=== PATIENT | female | born 1960 | race Caucasian/White ===

== ENCOUNTER 2016-04-02 04:54 | Emergency (ER) | payer OTHER ==
[~2016-04-02] VITALS: Ht 170.2 cm; Wt 74.1 kg
[~2016-04-02 04:54] MED LIST: CITA20TA4 PO
[2016-04-02 05:05] VITALS: BP 114/65; PULSE 72; RESP 16; TEMP 99.1; O2SAT 99
[2016-04-02 05:28] VITALS: TEMP 98.5
[2016-04-02] MEDS ORDERED: SODIUM CHLORIDE 0.9% FLUSH 5 ML FLUSH IVF PRN (05:30)
[2016-04-02] MEDS ORDERED: SODIUM CHLOR 0.9% 1000 ML INJ 1,000 ML IV ONE ×2 (05:30→06:45)
[2016-04-02] MEDS ORDERED: ONDANSETRON HCL 4 MG/2 ML VIAL IV PUSH ONE ×2 (05:30→06:45)
[2016-04-02 05:33] VITALS: RESP 18; O2SAT 99
--- NOTE | 2016-04-02 05:49 | PD ---
HPI Chief Complaint: Cold / Flu Symptoms Time Seen by Provider: 05:30 Travel History International Travel<30 days: No Contact w/Intl Traveler<30days: No Traveled to known affect area: No History of Present Illness HPI 56-year-old female presents to the emergency department for complaint of cold and flu symptoms since Saturday. Patient's had subjective fever with headache sinus pressure drainage sore throat cough congestion chest tightness myalgias arthralgias low back pain and not responding to [id number] medications. Patient states she feels miserable with severe nausea without vomiting. No report of chest pain. Patient has also experienced diarrhea. Patient's last medication for fever cough congestion myalgias and arthralgias was at 7 PM Saturday evening. Patient rates her overall discomfort 10 over 10 in intensity. Patient is intermittently tearful. Patient denies any abdominal pain. PFSH Past Medical History Narrative Medical Anxiety, ovarian cyst, migraines, exploratory laparotomy, tobacco use, nursing notes reviewed Anxiety: Yes Cancer: No Cardiovascular Problems: No Diabetes: No Diminished Hearing: No Endocrine: No Genitourinary: No Hepatitis: No Hiatal Hernia: No Immune Disorder: No Musculoskeletal: No Neurologic: Yes (ocular migraines) Psychiatric: Yes (anxiety) Reproductive: No Respiratory: No Immunizations Current: Yes Thyroid Disease: No Tetanus Vaccination: Unknown Influenza Vaccination: No ?: Not Menopausal: Yes Past Surgical History AICD: No Gynecologic Surgery: Yes (laparoscopy) Joint Replacement: No Oral Surgery: Yes (wisdom teeth removed) Pacemaker: No Other Surgery: Yes Social History Alcohol Use: No Tobacco Use: Yes (/2 PPD) Substance Use: No Allergies-Medications (Allergen,Severity, Reaction): Coded Allergies: Sulfa (Verified Allergy, Unknown, HALLUCINATIONS, 04/02/16) Reported Meds & Prescriptions Reported Meds & Active Scripts Active Proventil Hfa 6.7 GM Inh (Albuterol Sulfate) 90 Mcg/Act Aer 2 Puff INH Q4-6H PRN Phenergan (Promethazine HCl) 25 Mg Tab 25 Mg PO Q6H PRN Reported Citalopram (Citalopram Hydrobromide) 20 Mg Tab 20 Mg PO DAILY Review of Systems Except as stated in HPI: all other systems reviewed are Neg General / Constitutional: Positive: Fever HENT: Positive: Headaches, Sore Throat, Congestion Respiratory: Positive: Cough, Shortness of Breath Gastrointestinal: Positive: Nausea, No: Vomiting, Diarrhea, Abdominal Pain Genitourinary: Positive: Flank Pain, No: Dysuria Musculoskeletal: Positive: Myalgias, Arthralgias Skin: No Rash Neurologic: No: Weakness Psychiatric: Positive: Anxiety Hematologic/Lymphatic: No: Lymph Node Enlargement Physical Exam Narrative GENERAL: Well-developed well-nourished female in no acute distress no respiratory distress intermittently tearful SKIN: Warm and dry. HEAD: Normocephalic. EYES: No scleral icterus. No injection or drainage. NECK: Supple, trachea midline. No JVD or lymphadenopathy. CARDIOVASCULAR: Regular rate and rhythm without murmurs, gallops, or rubs. RESPIRATORY: Breath sounds equal bilaterally. No accessory muscle use. GASTROINTESTINAL: Abdomen soft, non-tender, nondistended. MUSCULOSKELETAL: No cyanosis, or edema. BACK: Nontender without obvious deformity. No CVA tenderness. Data Data Last Documented VS Vital Signs Date Time Temp Pulse Resp B/P Pulse Ox O2 Delivery O2 Flow Rate FiO2 04/02/16 06:32 61 18 120/65 98 Room Air 04/02/16 05:28 98.5 Orders Complete Blood Count With Diff (04/02/16 05:30) Basic Metabolic Panel (Bmp) (04/02/16 05:30) Influenzae A/B Antigen (04/02/16 05:30) Chest, Pa & Lat (04/02/16 05:30) Ecg Monitoring (04/02/16 05:30) Iv Access Insert/Monitor (04/02/16 05:30) Oximetry (04/02/16 05:30) Sodium Chloride 0.9% Flush (Ns Flush) (04/02/16 05:30) Urinalysis - C+S If Indicated (04/02/16 05:30) Ondansetron Inj (Zofran Inj) (04/02/16 05:30) Sodium Chlor 0.9% 1000 Ml Inj (Ns 1000 M (04/02/16 05:30) Ondansetron Inj (Zofran Inj) (04/02/16 06:45) Ketorolac Inj (Toradol Inj) (04/02/16 06:45) Albuterol-Ipratropium Neb (Duoneb Neb) (04/02/16 06:45) Sodium Chlor 0.9% 1000 Ml Inj (Ns 1000 M (04/02/16 06:45) Labs Laboratory Tests Test 04/02/16 05:50 White Blood Count 3.4 TH/MM3 Red Blood Count 4.51 MIL/MM3 Hemoglobin 13.2 GM/DL Hematocrit 40.3 % Mean Corpuscular Volume 89.3 FL Mean Corpuscular Hemoglobin 29.3 PG Mean Corpuscular Hemoglobin 32.8 % Concent Red Cell Distribution Width 11.8 % Platelet Count 171 TH/MM3 Mean Platelet Volume 8.9 FL Neutrophils (%) (Auto) 57.8 % Lymphocytes (%) (Auto) 30.7 % Monocytes (%) (Auto) 9.9 % Eosinophils (%) (Auto) 0.9 % Basophils (%) (Auto) 0.7 % Neutrophils # (Auto) 2.1 TH/MM3 Lymphocytes # (Auto) 1.0 TH/MM3 Monocytes # (Auto) 0.3 TH/MM3 Eosinophils # (Auto) 0.0 TH/MM3 Basophils # (Auto) 0.0 TH/MM3 CBC Comment DIFF FINAL Differential Comment Urine Collection Type CLEAN CATCH Urine Color YELLOW Urine Turbidity CLEAR Urine pH 5.5 Urine Specific [place] 1.014 Urine Protein NEG mg/dL Urine Glucose (UA) NEG mg/dL Urine Ketones NEG mg/dL Urine Occult Blood TRACE Urine Nitrite NEG Urine Bilirubin NEG Urine Leukocyte Esterase NEG Urine RBC 0-3 /hpf Urine Squamous Epithelial 0-5 /hpf Cells Urine Amorphous Sediment SMALL Urine Bacteria OCC /hpf Urine Mucus OCC /lpf Microscopic Urinalysis Comment CULT NOT INDICATED Sodium Level 141 MEQ/L Potassium Level 3.6 MEQ/L Chloride Level 104 MEQ/L Carbon Dioxide Level 30.2 MEQ/L Anion Gap 7 MEQ/L Blood Urea Nitrogen 9 MG/DL Creatinine 0.90 MG/DL Estimat Glomerular Filtration 65 ML/MIN Rate Random Glucose 96 MG/DL Calcium Level 8.2 MG/DL [facility] Medical Decision Making Medical Screen Exam Complete: Yes Emergency Medical Condition: Yes Medical Record Reviewed: Yes Interpretation(s) cxrFINDINGS: PA and lateral views of the chest demonstrate the lungs to be symmetrically aerated without evidence of mass, infiltrate or effusion. The lungs are hyperinflated. The cardiomediastinal contours are unremarkable. Osseous structures are intact. CONCLUSION: Hyperinflation suggesting COPD. No acute infiltrate or effusion. Jose Harrison Jr., MD on April 02, 2016 at 5:54 Board Certified Radiologist. This report was verified electronically. Differential Diagnosis Viral syndrome, sinusitis, influenza, bronchitis, pneumonia, UTI Narrative Course IV access obtained patient administered normal saline bolus as well as Zofran 4 mg IV for complaint of nausea specimens collected and sent for resulting; chest x-ray ordered Chest x-ray no evidence of lobar infiltrate Lab values resulted mild leukopenia depression of total white cell count otherwise values grossly normal range; patient informed of lab results and chest x-ray findings At 6:45 AM patient is clinically improved, however continues to complain of generalized myalgias and arthralgias given one-time dose of Toradol 30 mg IV; given one time updraft treatment and additional IV fluid bolus; patient is stable for outpatient management Diagnosis Primary Impression: Bronchitis Additional Impression: Viral syndrome Referrals: Primary Care Physician call for appointment Patient Instructions: General Instructions Departure Forms: Tests/Procedures, Work Release Special Instructions: no work x 1 day Additional Instructions: Take medication as prescribed as needed for nausea and/or vomiting Take acetaminophen every 4 hours as needed for fever 100.4F or greater Follow-up with your primary care physician No work times one day Take ibuprofen/Motrin/Advil every 6-8 hours as needed for fever 100.4F or greater or for pain associated with inflammation Use inhaler as prescribed as needed for wheezing/shortness of breath-related cough discontinue tobacco use Med/Other Pt SpecificInfo: Prescription(s) given Scripts Albuterol 6.7 GM Inh (Proventil Hfa 6.7 GM Inh)90 Mcg/Act Aer2 Puff INH Q4-6H PRN (SHORTNESS OF BREATH) #1 INHALER Ref 0 Prov:rIena Haney MD 04/02/16 Promethazine (Phenergan)25 Mg Tab25 Mg PO Q6H PRN (Nausea/Vomiting) #10 TAB Ref 0 Prov:Irena Haney MD 04/02/16 Disposition: 01 DISCHARGE HOME Condition: Stable Irena Haney MD Apr 02, 2016 05:49
--- NOTE | 2016-04-02 05:56 | RADHPO ---
EXAM DATE/TIME: 04/02/2016 05:41 [place] COMPARISON: No previous studies available for comparison. INDICATIONS : Cough, fever MEDICAL HISTORY : SURGICAL HISTORY : None. ENCOUNTER: Initial ACUITY: 4 - 6 days PAIN SCORE: Non-responsive. LOCATION: Bilateral chest FINDINGS: PA and lateral views of the chest demonstrate the lungs to be symmetrically aerated without evidence of mass, infiltrate or effusion. The lungs are hyperinflated. The cardiomediastinal contours are unr emarkable. Osseous structures are intact. CONCLUSION: Hyperinflation suggesting COPD. No acute infiltrate or effusion. Jose Harrison Jr., MD on April 02, 2016 at 5:54 Board Certified Radiologist. This report was verified electronically.
[2016-04-02 06:15] LABS: AUTOMATED NEUTROPHIL # 2.1 TH/MM3 (1.8-7.7); BASOPHIL % 0.7 % (0.0-2.0); EOSINOPHIL % 0.9 % (0.0-4.0); HEMATOCRIT 40.3 % (35.0-46.0); HEMO FLAGS DIFF FINAL; LYMPH % 30.7 % (9.0-44.0); MEAN CELL VOLUME 89.3 FL (80.0-100.0); MEAN CORPUSCULAR HEMOGLOBIN 29.3 PG (27.0-34.0); MEAN CORPUSCULAR HGB CONC 32.8 % (32.0-36.0); MONO % 9.9 % (0.0-8.0); NEUT % 57.8 % (16.0-70.0); PLATELET COUNT 171 TH/MM3 (150-450); RED BLOOD COUNT 4.51 MIL/MM3 (4.00-5.30); RED CELL DISTRIBUTION WIDTH 11.8 % (11.6-17.2); WHITE BLOOD COUNT 3.4 TH/MM3 (4.0-11.0)
[2016-04-02 06:23] LABS: BLOOD, URINE TRACE (NEG); GLUCOSE,URINE NEG (NEG); KETONE, URINE NEG (NEG); NITRITE,URINE NEG (NEG); PH, URINE 5.5 (5.0-8.5)
[2016-04-02 06:24] LABS: POTASSIUM 3.6 MEQ/L (3.5-5.1)
[2016-04-02 06:29] LABS: BICARBONATE 30.2 MEQ/L (21.0-32.0)
[2016-04-02 06:31] LABS: METHOD OF COLLECTION CLEAN CATCH; URINE COLOR YELLOW (YELLW/STRAW)
[2016-04-02 06:32] VITALS: BP 120/65; PULSE 61; RESP 18; O2SAT 98
[2016-04-02 06:32] LABS: MUCUS URINE OCC /lpf (OCC); RBC, URINE 0-3 /hpf (0-3); SQUAMOUS EPITHELIAL CELL URINE 0-5 /hpf (0-5)
[2016-04-02 06:33] LABS: BACTERIA, URINE OCC /hpf; COMMENT (UR) CULT NOT INDICATED; CULTURE IF INDICATED CULT NOT INDICATED
[2016-04-02] MEDS ORDERED: PROM25TA5 PO (06:43)
[2016-04-02] MEDS ORDERED: ALBU6.7H INH (06:43)
[2016-04-02] MEDS ORDERED: RESP: ALBUTEROL 2.5 MG/IPRATROPIUM 0.5 MG NEB (SCH) NEB ONE (06:45)
[2016-04-02] MEDS ORDERED: KETOROLAC TROMETHAMINE 30 MG/ML (IVP) VIAL IV PUSH ONE (06:45)
[2016-04-02 07:46] VITALS: RESP 17
[2016-04-02 07:47] VITALS: BP 116/61
== END 2016-04-02 07:48 | disposition home or self-care (01) ==
LOC: PHED 04:54
DX: J40 Bronchitis, not specified as acute or chronic (principal); B34.9 Viral infection, unspecified; F17.210 Nicotine dependence, cigarettes, uncomplicated
CPT/HCPCS: 71020; 80048; 81001; 85025; 87804; 94664; 96361; 96374; 96375; 96376; 99283; J1885; J2405; J7030